=== PATIENT | male | born 1995 | race Caucasian/White ===

== ENCOUNTER 2016-12-11 20:58 | Emergency (ER) | payer BC ==
[~2016-12-11] VITALS: Ht 190.5 cm; Wt 97.7 kg
[2016-12-11 21:13] VITALS: BP 131/65
[2016-12-11] MEDS ORDERED: OXAP600T2 PO (21:29)
== END 2016-12-11 21:39 | disposition home or self-care (01) ==
LOC: ED 21:01
DX: M54.31 Sciatica, right side (principal)
CPT/HCPCS: 99282; 99283